=== PATIENT | female | born 1965 | race Caucasian/White ===

== ENCOUNTER → 2017-03-31 | Outpatient (CLI) | payer BC ==
[~2017-03-31] MED LIST: BLOOD GLUCOSE1 EACH MC; LANCETS1 EACH MC; METFORMIN HCL500 MG PO
== END | disposition home or self-care (01) ==
LOC: NUC 03-16 08:30
DX: E10.9 Type 1 diabetes mellitus without complications (principal); R10.9 Unspecified abdominal pain
CPT/HCPCS: 78264; A9541